=== PATIENT | female | born 1985 | race Caucasian/White ===

== ENCOUNTER → 2018-01-14 | Outpatient (CLI) | payer OTHER ==
[2018-01-14 17:11] LABS: ERYTHROCYTE SEDIMENTATION RATE 6 mm/hr (0-20)
[2018-01-14 17:21] LABS: C REACTIVE PROTEIN QUANTITATIV < 0.30 MG/DL (0.00-0.30)
[2018-01-14 17:45] LABS: CONTROL LINE MONO INT CTR LINE PRESENT; MONO SCRN NEGATIVE (NEGATIVE)
== END ==
LOC: M LAB 16:13
DX: R10.811 Right upper quadrant abdominal tenderness (principal)

== ENCOUNTER → 2018-01-20 | Outpatient (CLI) | payer OTHER ==
[~2018-01-20] MED LIST: GASTROGRAFIN SOLUTION 30ML (Q9963) As Ordered; ISOVUE-370 76% 100ML VIAL (Q9967) As Ordered
== END ==
LOC: M RAD 15:26
DX: R10.11 Right upper quadrant pain (principal)

== ENCOUNTER 2018-03-01 14:59 | Emergency (ER) | payer OTHER ==
[2018-03-01] MEDS: ONDANSETRON 4MG/2ML VIAL (J2405) IV (16:40)
[2018-03-01] MEDS: NS 1,000 ML IV (16:40)
[2018-03-01] MEDS: MORPHINE 4 MG/ML 1ML VIAL/SYRINGE (J2270) IV ×2 (16:41→17:57)
[2018-03-01 16:43] LABS: BASO # 0.1 10^3/uL (0.0-0.2); BASO % 0.5 % (0.0-1.0); EOS # 0.2 10^3/uL (0.0-0.50); EOS % 1.3 % (0.0-3.0); HEMATOCRIT 35.4 % (36.0-47.0); HEMOGLOBIN 11.8 g/dl (12.0-15.5); IMMATURE GRANULOCYTE % 0.4 % (0-3.0); LYMPH % 13.9 % (24.0-44.0); MEAN CORPUSCULAR HEMOGLOBIN 30.2 pg (27.0-33.0); MEAN CORPUSCULAR HGB CONC 33.3 g/dl (32.0-36.5); MEAN CORPUSCULAR VOLUME 90.5 fl (80.0-96.0); MONO # 0.9 10^3/uL (0.0-0.8); MONO % 6.6 % (0.0-5.0); NEUTROPHILS % 77.3 % (36.0-66.0); PLATELET COUNT, AUTOMATED 354 10^3/uL (150-450); RED BLOOD COUNT 3.91 10^6/uL (4.00-5.40); RED CELL DISTRIBUTION WIDTH 12.8 % (11.5-14.5); WHITE BLOOD COUNT 14.2 10^3/uL (4.0-10.0)
[2018-03-01 16:49] LABS: KETONE, URINE AUTO RFX NEGATIVE (NEGATIVE); LEUKOCYTE ESTERASE UR AUTO RFX NEGATIVE (NEGATIVE); MUCUS, URINE RFX SMALL (NEGATIVE); NITRITE, URINE AUTO RFX NEGATIVE (NEGATIVE); RBC, URINE AUTO RFX 0 /HPF (0-3); SPECIFIC GRAVITY UR AUTO RFX 1.009 (1.002-1.035); SQUAM EPITHELIAL CELL UR AURFX 0 /HPF (0-6); WBC, URINE AUTO RFX 2 /HPF (0-3)
[2018-03-01 16:54] LABS: INR 1.04; PROTHROMBIN TIME 13.7 SECONDS (12.4-14.5)
[2018-03-01 16:55] LABS: PARTIAL THROMBOPLASTIN TIME 29.8 SECONDS (26.8-37.9)
[2018-03-01 17:18] LABS: LACTIC ACID SEPSIS PROTOCOL 0.7 MMOL/L (0.4-2.0)
[2018-03-01 17:23] LABS: ALBUMIN 4.1 GM/DL (3.2-5.2); ALBUMIN/GLOBULIN RATIO 1.37 (1.00-1.93); ALKALINE PHOSPHATASE 62 U/L (45-117); ALT/SGPT 17 U/L (12-78); ANION GAP 7 MEQ/L (8-16); AST/SGOT 16 U/L (7-37); BILIRUBIN,DIRECT 0.1 MG/DL (0.0-0.2); BILIRUBIN,TOTAL 0.6 MG/DL (0.2-1.0); BLOOD UREA NITROGEN 11 MG/DL (7-18); CALCIUM LEVEL 8.8 MG/DL (8.5-10.1); CARBON DIOXIDE LEVEL 28 MEQ/L (21-32); CHLORIDE LEVEL 105 MEQ/L (98-107); CREATININE FOR GFR 0.66 MG/DL (0.55-1.30); GLOMERULAR FILTRATION RATE > 60.0 (>60); GLUCOSE, FASTING 84 MG/DL (70-100); LIPASE 99 U/L (73-393); POTASSIUM SERUM 4.5 MEQ/L (3.5-5.1); SODIUM LEVEL 140 MEQ/L (136-145); TOTAL PROTEIN 7.1 GM/DL (6.4-8.2)
[2018-03-01] MEDS ORDERED: ISOVUE-370 76% 100ML VIAL (Q9967) As Ordered (18:00)
== END 2018-03-01 19:52 | disposition home or self-care (01) ==
LOC: M ED 14:59
DX: R10.11 Right upper quadrant pain (principal); F41.9 Anxiety disorder, unspecified; Z72.0 Tobacco use
CPT/HCPCS: J2270

== ENCOUNTER → 2018-08-30 | Outpatient (REF) | payer OTHER ==
[~2018-08-30] MED LIST changes: +ALPR1TAB3 PO; +DICY20TA11 PO; -GASTROGRAFIN SOLUTION 30ML (Q9963) As Ordered; -ISOVUE-370 76% 100ML VIAL (Q9967) As Ordered
[2018-08-30 15:01] LABS: ALBUMIN 3.9 GM/DL (3.2-5.2); ALT/SGPT 36 U/L (12-78); BILIRUBIN,TOTAL 0.4 MG/DL (0.2-1.0); BLOOD UREA NITROGEN 15 MG/DL (7-18); CALCIUM LEVEL 8.4 MG/DL (8.5-10.1); CARBON DIOXIDE LEVEL 28 MEQ/L (21-32); CHLORIDE LEVEL 107 MEQ/L (98-107); GAMMA GLUTAMYLTRANSPEPTIDASE 47 U/L (5-55); GLOMERULAR FILTRATION RATE > 60.0 (>60); GLUCOSE, FASTING 71 MG/DL (70-100); POTASSIUM SERUM 4.1 MEQ/L (3.5-5.1); SODIUM LEVEL 142 MEQ/L (136-145); TOTAL PROTEIN 6.8 GM/DL (6.4-8.2)
[2018-08-30 15:19] LABS: HEPATITIS B SURFACE ANTIGEN NEGATIVE (NEGATIVE)
[2018-09-01 14:16] LABS: ANA (HEP2) Negative (.); ANTI-MITOCHONDRIAL ANTIBODY 2.2 Units (0.0-20.0); ANTI-SMOOTH MUSCLE ANTIBODY 6 Units (0-19); HBV HBV DNA not detected IU/mL (.); HEPATITIS A IgG TOTAL Positive (Negative); HEPATITIS B CORE ANTIBODY IGG Negative (Negative); HEPATITIS BE ANTIBODY Negative (Negative); HEPATITIS BE ANTIGEN Negative (Negative); HEPATITIS C QUANTITATION HCV Not Detected IU/mL (.); LIVER-KIDNEY MICROSOMAL ABY 0.9 Units (0.0-20.0)
== END ==
LOC: M SFHCPLAZ 10:44
PROVIDERS: ATTEND Internal Medicine Infectious Disease
DX: R94.5 Abnormal results of liver function studies (principal)
CPT/HCPCS: 36415; 80053; 82977; 86038; 86255; 86376; 86704; 86707; 86708; 87340; 87350; 87517; 87522; G0463

== ENCOUNTER → 2018-09-15 | Outpatient (CLI) | payer OTHER ==
[~2018-09-15] MED LIST changes: +PROHANCE 279.3MG/ML 15ML VIAL (A9576) As Ordered ONE
--- NOTE | 2018-09-15 16:20 | REP ---
MRCP exam without contrast: History: Abnormal LFTs. Comparison CT study March 01, 2018. Findings: There is a focal T2 hyperintense liver lesion 1.4 cm in diameter in the posterior segment of the right lobe of the liver. A small cortical cyst is seen in the right kidney. The gallbladder is surgically absent. The common bile duct has a normal appearance and a 7 mm caliber which is normal post cholecystectomy. The pancreatic duct is unremarkable as well. Augmentation implants are visible bilaterally in the breasts. Impression: Normal MRCP exam post cholecystectomy. There is a 1.4 cm right lobe liver lesion which corresponds to the CT findings. Electronically Signed by Erick Conway MD 09/15/2018 08:43 P
--- NOTE | 2018-09-15 17:15 | REP ---
MRI abdomen without and with IV gadolinium: History: Abnormal liver function studies. Hypervascular right lobe liver lesion. Comparison CT study January 20 and March 01, 2018. Technique: Axial and coronal T1 and T2-weighted scans were obtained. Sequences include spin-echo, fast spin echo, diffusion, in and out of phase, and dynamically acquired sequential post contrast enhanced images. Gadolinium enhancement dose is 12 mL of intravenous ProHance. MRI findings: There is a 9 mm cortical cyst in the left kidney. There is a similar sized cyst in the lower pole of the right kidney. No pancreatic abnormalities observed. The gallbladder is surgically absent. No splenic lesion is seen. No adrenal abnormalities observed. There is no evidence of ascites. There is a solitary liver lesion in the right lobe corresponding to the hypervascular lesion seen on CT. This is unchanged in size. It measures 14 mm in greatest diameter. It is characterized by T2 hyperintensity, T1 hypointensity and hypervascular enhancement with some washout on subsequent images. There is no evidence to suggest intralesional fat on in and out of phase images. The lesion does not demonstrate the typical pattern of contrast enhancement for hemangioma and is felt to be more compatible with hepatic adenoma or perhaps focal nodular hyperplasia. It is stable in size over an 8-month interval. No other focal liver lesion is seen. Impression: 14 mm hypervascular right hepatic lobe liver lesion most compatible with adenoma versus focal nodular hyperplasia. This corresponds to the liver lesion seen on CT from December and February 2018. It has demonstrated 8 months of stability in size. Followup scan suggested in one year. Electronically Signed by Erick Conway MD 09/15/2018 08:44 P
== END ==
LOC: M RAD 12:48
PROVIDERS: ATTEND Internal Medicine Infectious Disease
DX: K76.89 Other specified diseases of liver (principal)
CPT/HCPCS: 74181; 74183; A9576

== ENCOUNTER → 2018-09-16 | Outpatient (REF) | payer OTHER ==
[~2018-09-16] MED LIST changes: -PROHANCE 279.3MG/ML 15ML VIAL (A9576) As Ordered ONE
[2018-09-16 12:13] LABS: BASO # 0.1 10^3/uL (0.0-0.2); BASO % 1.1 % (0.0-1.0); EOS # 0.2 10^3/uL (0.0-0.50); EOS % 2.8 % (0.0-3.0); HEMATOCRIT 35.6 % (36.0-47.0); HEMOGLOBIN 11.6 g/dl (12.0-15.5); LYMPH % 25.9 % (24.0-44.0); MEAN CORPUSCULAR HEMOGLOBIN 29.5 pg (27.0-33.0); MEAN CORPUSCULAR HGB CONC 32.6 g/dl (32.0-36.5); MEAN CORPUSCULAR VOLUME 90.6 fl (80.0-96.0); MONO # 0.7 10^3/uL (0.0-0.8); MONO % 8.8 % (0.0-5.0); NEUTROPHILS # 4.8 10^3/uL (1.8-7.7); PLATELET COUNT, AUTOMATED 341 10^3/uL (150-450); RED BLOOD COUNT 3.93 10^6/uL (4.00-5.40); WHITE BLOOD COUNT 7.9 10^3/uL (4.0-10.0)
[2018-09-16 12:17] LABS: ALBUMIN 4.1 GM/DL (3.2-5.2); ALT/SGPT 22 U/L (12-78); BILIRUBIN,DIRECT 0.2 MG/DL (0.0-0.2); BILIRUBIN,TOTAL 0.7 MG/DL (0.2-1.0); TOTAL PROTEIN 7.2 GM/DL (6.4-8.2)
[2018-09-17 09:32] LABS: HEPATITIS B SURFACE ANTIBODY NEGATIVE (POSITIVE)
== END ==
LOC: M SFHCPLAZ 09:56
PROVIDERS: ATTEND Internal Medicine Infectious Disease
DX: R94.5 Abnormal results of liver function studies (principal)

== ENCOUNTER 2018-10-26 10:10 | Emergency (ER) | payer OTHER ==
[~2018-10-26] VITALS: Ht 167.6 cm; Wt 27.9 kg
[2018-10-26 10:41] LABS: BASO # 0.1 10^3/uL (0.0-0.2); BASO % 0.8 % (0.0-1.0); EOS # 0.2 10^3/uL (0.0-0.50); EOS % 2.1 % (0.0-3.0); HEMATOCRIT 42.7 % (36.0-47.0); HEMOGLOBIN 13.6 g/dl (12.0-15.5); LYMPH # 2.2 10^3/uL (1.5-4.5); LYMPH % 30.8 % (24.0-44.0); MEAN CORPUSCULAR HEMOGLOBIN 28.6 pg (27.0-33.0); MEAN CORPUSCULAR HGB CONC 31.9 g/dl (32.0-36.5); MEAN CORPUSCULAR VOLUME 89.9 fl (80.0-96.0); MONO # 0.6 10^3/uL (0.0-0.8); MONO % 8.9 % (0.0-5.0); NEUTROPHILS # 4.1 10^3/uL (1.8-7.7); NEUTROPHILS % 57.1 % (36.0-66.0); PLATELET COUNT, AUTOMATED 370 10^3/uL (150-450); RED BLOOD COUNT 4.75 10^6/uL (4.00-5.40); WHITE BLOOD COUNT 7.2 10^3/uL (4.0-10.0)
[2018-10-26 11:14] LABS: ALBUMIN 3.9 GM/DL (3.2-5.2); ALT/SGPT 19 U/L (12-78); AMYLASE 42 U/L (25-115); BILIRUBIN,DIRECT 0.2 MG/DL (0.0-0.2); BILIRUBIN,TOTAL 0.8 MG/DL (0.2-1.0); BLOOD UREA NITROGEN 14 MG/DL (7-18); CALCIUM LEVEL 7.9 MG/DL (8.5-10.1); CARBON DIOXIDE LEVEL 26 MEQ/L (21-32); CHLORIDE LEVEL 109 MEQ/L (98-107); CREATININE FOR GFR 0.72 MG/DL (0.55-1.30); GLOMERULAR FILTRATION RATE > 60.0 (>60); GLUCOSE, FASTING 88 MG/DL (70-100); LIPASE 114 U/L (73-393); POTASSIUM SERUM 3.8 MEQ/L (3.5-5.1); SODIUM LEVEL 141 MEQ/L (136-145); TOTAL PROTEIN 6.9 GM/DL (6.4-8.2)
[2018-10-26] MEDS ORDERED: KETOROLAC 30 MG/ML VIAL (J1885) IV ONE (11:15)
[2018-10-26] MEDS ORDERED: ONDANSETRON 4MG/2ML VIAL (J2405) IV ONE (11:15)
[2018-10-26 11:30] LABS: HCG, SERUM QUALITATIVE NEGATIVE (NEGATIVE)
--- NOTE | 2018-10-26 11:55 | REP ---
Clinical: Right upper quadrant abdominal pain. Technique: Upright view of the chest with supine and upright views of the abdomen and pelvis. Findings: Frontal upright view of the chest demonstrates no acute cardiopulmonary process or free air below the diaphragm to suspect pneumoperitoneum. Supine and upright views of the abdomen and pelvis demonstrate nonspecific bowel gas pattern without obstruction or perforation. Evidence of prior cholecystectomy noted. IUD identified in the pelvis. No organomegaly. No abnormal calcifications. Skeletal structures normal for age. Impression: Nonspecific bowel gas pattern. Electronically Signed by Gavino Aquino MD 10/26/2018 11:46 A
[2018-10-26] MEDS ORDERED: CARA1TAB6 PO (12:21)
[2018-10-26] MEDS ORDERED: PROT1TAB2 PO (12:21)
[2018-10-26 12:30] VITALS: BP 112/76
== END 2018-10-26 12:32 | disposition home or self-care (01) ==
LOC: M ED 10:10
DX: K29.00 Acute gastritis without bleeding (principal); R10.9 Unspecified abdominal pain
CPT/HCPCS: 74021; 80048; 80076; 82150; 83690; 84703; 85025; 96374; 96375; 99284; J1885; J2405

== ENCOUNTER → 2019-08-18 | Outpatient (CLI) | payer OTHER ==
[~2019-08-18] MED LIST changes: +CARA1TAB6 PO; +PROT1TAB2 PO
[2019-08-18 16:32] LABS: ALBUMIN 3.7 GM/DL (3.2-5.2); ALT/SGPT 130 U/L (12-78); BILIRUBIN,DIRECT 0.2 MG/DL (0.0-0.2); BILIRUBIN,TOTAL 0.9 MG/DL (0.2-1.0); FERRITIN 52 NG/ML (8-252); IRON (FE) 116 UG/DL (50-170); PERCENT SATURATION 35.8 % (13.2-45.0); TOTAL IRON BINDING CAPACITY 324 UG/DL (250-450); TOTAL PROTEIN 6.8 GM/DL (6.4-8.2)
[2019-08-18 16:44] LABS: INR 1.14; PROTHROMBIN TIME 14.3 SECONDS (11.8-14.0)
[2019-08-18 16:45] LABS: PARTIAL THROMBOPLASTIN TIME 31.3 SECONDS (25.0-38.4)
[2019-08-19 11:08] LABS: HEPATITIS B SURFACE ANTIGEN NEGATIVE (NEGATIVE)
[2019-08-19 11:35] LABS: HEPATITIS C VIRUS ABY INDEX 0.1 INDEX (<0.8)
[2019-08-19 11:37] LABS: HEPATITIS A ANTIBODY IGM NEGATIVE (NEGATIVE)
[2019-08-19 12:14] LABS: HEPATITIS B SURFACE ANTIBODY POSITIVE (POSITIVE)
[2019-08-21 00:06] LABS: ALPHA 1 ANTITRYPSIN 142 mg/dL (100-188); ANTI-MITOCHONDRIAL ANTIBODY <20.0 Units (0.0-20.0); ANTI-SMOOTH MUSCLE ANTIBODY 7 Units (0-19); ANTINUCLEAR ANTIBODIES DIRECT Negative (Negative); CERULOPLASMIN 25.5 mg/dL (19.0-39.0); HEPATITIS A IgG TOTAL Positive (Negative); LIVER-KIDNEY MICROSOMAL ABY <20.1 Units (0.0-20.0); TISSUE TRANSGLUTAMINASE IgG <2 U/mL (0-5)
== END ==
LOC: M LAB 15:09
PROVIDERS: ATTEND Specialist
DX: R94.5 Abnormal results of liver function studies (principal); K31.89 Other diseases of stomach and duodenum; R10.11 Right upper quadrant pain

== ENCOUNTER 2019-08-27 17:17 | Emergency (ER) | payer OTHER ==
[~2019-08-27] VITALS: Ht 167.6 cm; Wt 61.4 kg
[2019-08-27] MEDS ORDERED: AJOV225I (17:29)
[2019-08-27 17:54] LABS: BASO # 0.1 10^3/uL (0.0-0.2); BASO % 0.8 % (0.0-1.0); EOS # 0.4 10^3/uL (0.0-0.5); EOS % 4.7 % (0.0-3.0); HEMATOCRIT 43.2 % (36.0-47.0); HEMOGLOBIN 14.3 g/dl (12.0-15.5); LYMPH # 1.8 10^3/uL (1.5-5.0); MEAN CORPUSCULAR HGB CONC 33.1 g/dl (32.0-36.5); MEAN CORPUSCULAR VOLUME 93.5 fl (80.0-96.0); MONO # 0.7 10^3/uL (0.0-0.8); MONO % 7.7 % (0.0-5.0); NEUTROPHILS % 66.2 % (36.0-66.0); PLATELET COUNT, AUTOMATED 370 10^3/uL (150-450); RED BLOOD COUNT 4.62 10^6/uL (4.00-5.40); WHITE BLOOD COUNT 9.1 10^3/uL (4.0-10.0)
[2019-08-27] MEDS ORDERED: KETOROLAC 30 MG/ML VIAL (J1885) IV ONE (18:00)
[2019-08-27] MEDS ORDERED: METOCLOPRAMIDE INJ 10MG/2ML VIAL (J2765) IV ONE (18:00)
[2019-08-27] MEDS ORDERED: NS 1,000 ML IV ONE (18:00)
[2019-08-27 18:18] LABS: ALBUMIN 3.9 GM/DL (3.2-5.2); ALT/SGPT 79 U/L (12-78); BILIRUBIN,DIRECT 0.2 MG/DL (0.0-0.2); BILIRUBIN,TOTAL 0.6 MG/DL (0.2-1.0); BLOOD UREA NITROGEN 11 MG/DL (7-18); CALCIUM LEVEL 8.7 MG/DL (8.5-10.1); CARBON DIOXIDE LEVEL 26 MEQ/L (21-32); CHLORIDE LEVEL 106 MEQ/L (98-107); CREATININE FOR GFR 0.72 MG/DL (0.55-1.30); GLOMERULAR FILTRATION RATE > 60.0 (>60); GLUCOSE, FASTING 81 MG/DL (70-100); LIPASE 75 U/L (73-393); POTASSIUM SERUM 4.2 MEQ/L (3.5-5.1); SODIUM LEVEL 140 MEQ/L (136-145); TOTAL PROTEIN 6.9 GM/DL (6.4-8.2)
[2019-08-27] MEDS ORDERED: ISOVUE-370 76% 100ML VIAL (Q9967) As Ordered ONE (18:36)
[2019-08-27] MEDS ORDERED: MORPHINE 4 MG/ML 1ML VIAL/SYRINGE (J2270) IV ONE (18:45)
[2019-08-27] MEDS ORDERED: DICYCLOMINE 10 MG CAP PO ONE (18:45)
--- NOTE | 2019-08-27 19:40 | REPVR ---
PROCEDURE INFORMATION: Exam: CT Abdomen And Pelvis With Contrast Exam date and time: 08/27/2019 6:39 PM Age: 34 years old Clinical history: Abdominal pain; Prior surgery; Surgery date: 3-7 days post-operative; Surgery type: Ercp; Additional info: Ruq pain, ercp 4 days ago, n/v TECHNIQUE: Imaging protocol: Computed tomography of the abdomen and pelvis with intravenous contrast. Radiation optimization: All CT scans at this facility use at least one of these dose optimization techniques: automated exposure control; mA and/or kV adjustment per patient size (includes targeted exams where dose is matched to clinical indication); or iterative reconstruction. Contrast material: ISOVUE 370; Contrast volume: 100 ml; Contrast route: IV; COMPARISON: CT ABD/PEL W/IV CONTRAST ONLY 03/01/2018 6:06 PM FINDINGS: Lungs: Clear appearing lung bases. Heart: The heart is normal in size. There is no pericardial effusion. Liver: Normal appearing liver. Gallbladder and bile ducts: There are surgical clips at the gallbladder fossa and the patient is status post cholecystectomy. There is some narrowing of the 1st portion of the common bile duct which may be secondary to edematous changes from recent intervention. Pancreas: Mild prominence of the head of the pancreas. Spleen: Normal spleen. Adrenals: Normal adrenal glands. Kidneys and ureters: There is opacification of the kidneys. There is no evidence of hydronephrosis. There is no evidence of obstruction of the right or left ureter. Stomach and bowel: There is mucosal thickening of the gastric antrum. There is a 2 cm x 3 mm linear area of air in the wall of the pylorus possibly a small injury to the bowel wall. There is a small amount of free fluid in the pelvis. Appendix: The appendix appears within the range of normal. Intraperitoneal space: There is no evidence of pneumoperitoneum. Vasculature: There is opacification of the aorta which appears normal in size. There is opacification of the SMV and the SMA. There is opacification of the renal arteries. Lymph nodes: Unremarkable. No enlarged lymph nodes. Bladder: The urinary bladder is empty and cannot be evaluated. Reproductive: 4.3 cm cyst of the right kidney and an IUD is noted within the uterus. Bones/joints: Unremarkable. No acute fracture. Soft tissues: Unremarkable. IMPRESSION: 1. 4.3 cm cyst right ovary which may be a functional cyst. To exclude cystic pathology recommend follow-up ultrasound after 2-3 months to ensure that this cystic structure resolves. There is a small amount of free fluid in the pelvis possibly from leaking of the cyst. 2. There is swelling of the wall of the gastric antrum. 3. There is a curvilinear collection of air within the gastric wall at the pylorus which may be from recent intervention. Electronically signed by: Sedrick Castro On 08/27/2019 19:39:32 PM
[2019-08-27] MEDS ORDERED: REGL10TA6 PO ×2 (20:43→21:28)
[2019-08-27] MEDS ORDERED: DICY1CAP8 PO (20:43)
[2019-08-27] MEDS ORDERED: NORCO 5/325MG TABLET (BULK FOR ED) PO ONE (20:45)
[2019-08-27 20:55] VITALS: BP 124/82
[2019-08-27] MEDS ORDERED: DICY10CA13 PO (21:28)
--- NOTE | 2019-08-29 13:47 | ED PDOC ---
Post-Departure Follow-Up linda green faxed formal report of ct abd/p for fu Leeann Rodney MD Aug 29, 2019 13:47
== END 2019-08-27 21:49 | disposition home or self-care (01) ==
LOC: M ED 17:17
DX: E86.0 Dehydration (principal); N83.201 Unspecified ovarian cyst, right side
CPT/HCPCS: 36415; 74177; 80048; 80076; 81001; 83690; 84702; 85025; 96361; 96374; 96375; 99284; J1885; J2270; J2765; Q9967

== ENCOUNTER → 2019-11-16 | Outpatient (CLI) | payer OTHER ==
[~2019-11-16] MED LIST changes: +AJOV225I; +DICY10CA13 PO; +DICY1CAP8 PO; +REGL10TA6 PO
--- NOTE | 2019-11-16 09:44 | REPVR ---
PROCEDURE INFORMATION: Exam: CT Maxillofacial Without Contrast Exam date and time: 11/16/2019 9:08 AM Age: 34 years old Clinical indication: Other: Difficulty breathing; Additional info: FX of skull and facial bones TECHNIQUE: Imaging protocol: Computed tomography images of the face without contrast. Radiation optimization: All CT scans at this facility use at least one of these dose optimization techniques: automated exposure control; mA and/or kV adjustment per patient size (includes targeted exams where dose is matched to clinical indication); or iterative reconstruction. COMPARISON: No relevant prior studies available. FINDINGS: Orbits: Examination reveals bilateral globes to be normal in size and morphology. The optic nerves are normal in thickness and symmetric bilaterally. The extraocular muscles are normal in thickness and signal intensity. The retroconal fat has a normal appearance. The lacrimal glands appear normal bilaterally. Mastoid air cells: The visualized mastoid air cells are clear. Sinuses: The visualized paranasal sinuses are clear. There are no air fluid levels to suggest acute sinusitis. Bones/joints: The bony orbital hubbard are intact. No fractures are identified. The visualized osseous structures are unremarkable. No acute fracture or dislocation is seen. Soft tissues: Unremarkable. IMPRESSION: No acute fracture or dislocation is seen. Electronically signed by: Noah Avendaño On 11/16/2019 09:44:02 AM
== END ==
LOC: M RAD 08:43
PROVIDERS: ATTEND Psychiatry & Neurology Neurology
DX: S02.80XA Fracture of other specified skull and facial bones, unspecified side, initial encounter for closed fracture (principal); X58.XXXA Exposure to other specified factors, initial encounter; Y92.9 Unspecified place or not applicable; R51 Headache

== ENCOUNTER 2019-11-21 16:53 | Emergency (ER) | payer OTHER ==
[~2019-11-21] VITALS: Ht 167.6 cm; Wt 66.3 kg
[2019-11-21 16:54] VITALS: BP 142/85
--- NOTE | 2019-11-21 17:36 | REP ---
Left ankle series: Four views. History: Pain and swelling. Findings: Four views of the left ankle demonstrate an intact ankle mortise. There is mild soft tissue swelling anteriorly. No fracture is seen. Impression: No fracture or other acute bony abnormality. Electronically Signed by Erick Conway MD 11/21/2019 05:27 P
[2019-11-21] MEDS ORDERED: KETOROLAC 30 MG/ML VIAL (J1885) IM ONE (18:15)
[2019-11-21] MEDS ORDERED: IBUP80TA PO (18:40)
== END 2019-11-21 18:50 | disposition home or self-care (01) ==
LOC: M ED 16:53
DX: S93.402A Sprain of unspecified ligament of left ankle, initial encounter (principal); X50.9XXA Other and unspecified overexertion or strenuous movements or postures, initial encounter; Y92.410 Unspecified street and highway as the place of occurrence of the external cause; Y93.89 Activity, other specified; Y99.8 Other external cause status; F41.9 Anxiety disorder, unspecified; Z79.899 Other long term (current) drug therapy
CPT/HCPCS: 73610; 96372; 99284; J1885

== ENCOUNTER 2020-03-15 11:12 | Day surgery (SDC) | payer OTHER ==
[~2020-03-15] VITALS: Ht 167.6 cm; Wt 63.0 kg
[~2020-03-15 11:12] MED LIST changes: +CBD OIL PO; +IBUP80TA PO; +LIDOCAINE 1% MDV 20ML VIAL SQ PRN; +LIDOCAINE 2% 100MG/5ML SDV (FOR ANES.) As Ordered ONE; +LR 1,000 ML IV ONE; +MIDAZOLAM INJ 2MG/2ML VIAL (J2250 PER 1MG) As Ordered ONE; +MIRE1IUD IU; +ONDANSETRON 4MG/2ML VIAL As Ordered ONE; +ROCURONIUM BROMIDE 50 MG/5 ML VIAL As Ordered ONE; +dexameTHASONE 4 MG/ML 1ML VIAL (J1100 PER 1MG) As Ordered ONE; +fentaNYL 100 MCG/2 ML INJECTION (J3010) As Ordered ONE; +propofoL 200 MG/20 ML VIAL As Ordered ONE
[2020-03-15] MEDS ORDERED: EPINEPHrine 1MG/ML INJ 30ML MD-VIAL As Ordered ONE (11:53)
[2020-03-15] MEDS ORDERED: METHYLENE BLUE 0.5% (5MG/ML) 10 ML AMP (PROVAYBLUE) As Ordered ONE (11:53)
[2020-03-15] MEDS ORDERED: LIDOCAINE W/EPINEPHRINE 1% 20ML VIAL As Ordered ONE (11:53)
[2020-03-15] MEDS ORDERED: SCOPOLAMINE 1MG TRANSDERMAL PATCH As Ordered ONE (13:58)
[2020-03-15] MEDS ORDERED: SCOPOLAMINE 1MG TRANSDERMAL PATCH TOP ONE (14:15)
[2020-03-15] MEDS ORDERED: SUGAMMADEX SODIUM 500 MG/5 ML VIAL (BRIDION) As Ordered ONE (14:22)
[2020-03-15] MEDS ORDERED: ACETAMINOPHEN 1000MG 100ML IV BTL (OFIRMEV) (J0131 PER 10MG) As Ordered ONE (14:22)
[2020-03-15] MEDS ORDERED: METOCLOPRAMIDE INJ 10MG/2ML VIAL (J2765 PER 1) As Ordered ONE (14:24)
[2020-03-15] MEDS ORDERED: PHENYLephrine HCL 500 MCG/5 ML (100MCG/ML) SYRINGE (J2370) As Ordered ONE (14:36)
[2020-03-15] MEDS ORDERED: LR 1,000 ML IV SCH ×2 (15:30→15:45)
[2020-03-15] MEDS ORDERED: ACETAMINOPH W/CODEINE #3 TAB UD PO PRN (15:30)
[2020-03-15] MEDS ORDERED: oxyCODONE 5MG TAB As Ordered ONE (15:41)
[2020-03-15] MEDS ORDERED: fentaNYL 100 MCG/2 ML INJECTION (J3010) IV PRN (15:45)
[2020-03-15] MEDS ORDERED: ONDANSETRON 4MG/2ML VIAL IV PRN (15:45)
[2020-03-15] MEDS: oxyCODONE 5MG TAB PO PRN ×2 (15:47→16:39)
[2020-03-15 16:50] VITALS: BP 121/77
--- NOTE | 2020-03-18 14:37 | RO ---
DATE OF PROCEDURE: 03/15/2020 PREOPERATIVE DIAGNOSIS: Nasal septal deformity. POSTOPERATIVE DIAGNOSIS: Nasal septal deformity. OPERATIVE PROCEDURE: Septoplasty. Rhinoplasty. SURGEON: Dr. Zen Candelario DISTRIBUTION OPERATIONS SUPERVISOR: ANESTHESIA: FINDINGS: The nasal septum was deviated towards the right side in the mid portion, but anteriorly is deviated towards the left side along the columella. The anterior nasal spine was deviated towards the left side. DESCRIPTION OF PROCEDURE: Under general anesthesia with the patient intubated, the patient was prepped and draped in the usual manner. I used pledgets of adrenaline 1:1000 and infiltrated with lidocaine and epinephrine. I made an incision anteriorly on the septum on the left side and elevated the septum on both sides. The septum was splayed towards the left side on the maxillary crest so I sectioned to cauterize there and then removed the inferior portion of quadrangular cartilage and then a portion of the ethmoid plate. Once this was done, the septum was straight. There was an anterior bend towards the left side along the columella so I made a relaxing incision in the cartilage. I removed portions of the maxillary crest, but the anterior nasal spine I fractured and moved it medial. Next, what I did was I took and I put a suture from the base of the columella on the right side and then sutured that to the anterior nasal spine. I then sutured the mucosa back to the quadrangular cartilage. This was done with interrupted #4-0 chromic. I sutured the anterior part of the septum to the anterior nasal spine with #4-0 Vicryl. I used #4-0 Mersilene to suture the base of the columella on the right side to the anterior nasal spine. Once this was done, the septum was straight. There was no bleeding. I put some Gelfoam on both sides of the nose. The mucosa was reapproximated with #4-0 chromic. The patient was transferred to the recovery room in excellent condition.
== END 2020-03-15 17:00 | disposition home or self-care (01) ==
LOC: M SDC 11:12
PROVIDERS: ATTEND Otolaryngology
DX: J34.2 Deviated nasal septum (principal); G43.909 Migraine, unspecified, not intractable, without status migrainosus; F41.9 Anxiety disorder, unspecified; K21.9 Gastro-esophageal reflux disease without esophagitis; Z79.899 Other long term (current) drug therapy
CPT/HCPCS: 30400; 30520; 81025; 88300; J0131; J1100; J2250; J2370; J2405; J2765; J3010; Q9968

== ENCOUNTER → 2020-05-28 | Outpatient (CLI) | payer OTHER ==
[~2020-05-28] MED LIST changes: -LIDOCAINE 1% MDV 20ML VIAL SQ PRN; -LIDOCAINE 2% 100MG/5ML SDV (FOR ANES.) As Ordered ONE; -LR 1,000 ML IV ONE; -MIDAZOLAM INJ 2MG/2ML VIAL (J2250 PER 1MG) As Ordered ONE; -ONDANSETRON 4MG/2ML VIAL As Ordered ONE; -ROCURONIUM BROMIDE 50 MG/5 ML VIAL As Ordered ONE; -dexameTHASONE 4 MG/ML 1ML VIAL (J1100 PER 1MG) As Ordered ONE; -fentaNYL 100 MCG/2 ML INJECTION (J3010) As Ordered ONE; -propofoL 200 MG/20 ML VIAL As Ordered ONE
[2020-05-28 15:08] LABS: ALT/SGPT 18 U/L (12-78); BILIRUBIN,DIRECT 0.2 MG/DL (0.0-0.2); BILIRUBIN,TOTAL 0.4 MG/DL (0.2-1.0); FERRITIN 34 NG/ML (8-252); IRON (FE) 59 UG/DL (50-170); PERCENT SATURATION 17.5 % (13.2-45.0); TOTAL IRON BINDING CAPACITY 337 UG/DL (250-450); TOTAL PROTEIN 7.2 GM/DL (6.4-8.2)
[2020-05-28 15:14] LABS: HEPATITIS B SURFACE ANTIBODY POSITIVE (POSITIVE)
[2020-05-28 15:53] LABS: HEPATITIS C VIRUS ABY INDEX 0.2 INDEX (<0.8)
[2020-05-29 14:09] LABS: CERULOPLASMIN 24.2 mg/dL (19.0-39.0)
[2020-05-29 16:08] LABS: ANTI-MITOCHONDRIAL ANTIBODY <20.0 Units (0.0-20.0); ANTINUCLEAR ANTIBODIES DIRECT Negative (Negative)
== END ==
LOC: M LAB 14:03
PROVIDERS: ATTEND Specialist
DX: R94.5 Abnormal results of liver function studies (principal); R10.11 Right upper quadrant pain; K31.89 Other diseases of stomach and duodenum; K30 Functional dyspepsia

== ENCOUNTER 2020-06-11 10:12 | Emergency (ER) | payer OTHER ==
[~2020-06-11] VITALS: Ht 167.6 cm; Wt 66.8 kg
--- NOTE | 2020-06-11 11:10 | REPVR ---
PROCEDURE INFORMATION: Exam: XR Right Wrist Exam date and time: 06/11/2020 10:53 AM Age: 35 years old Clinical indication: Injury or trauma; Injury history: Hit wrist; Initial encounter; Swelling (edema); Right; Additional info: Pain TECHNIQUE: Imaging protocol: XR Right wrist. Views: 3 or more views. COMPARISON: No relevant prior studies available. FINDINGS: Bones/joints: No acute fracture. No dislocation. Soft tissues: Unremarkable as visualized. IMPRESSION: No acute findings. Electronically signed by: Scott Lopez On 06/11/2020 11:10:25 AM
[2020-06-11] MEDS ORDERED: IBUPROFEN 600MG TAB PO ONE (11:15)
[2020-06-11 11:29] VITALS: BP 119/79
== END 2020-06-11 11:33 | disposition home or self-care (01) ==
LOC: M ED 10:12
DX: S63.501A Unspecified sprain of right wrist, initial encounter (principal); X58.XXXA Exposure to other specified factors, initial encounter; Y92.89 Other specified places as the place of occurrence of the external cause; Z97.5 Presence of (intrauterine) contraceptive device

== ENCOUNTER 2020-08-03 14:05 | Day surgery (SDC) | payer OTHER ==
[~2020-08-03] VITALS: Ht 167.6 cm; Wt 65.8 kg
[~2020-08-03 14:05] MED LIST changes: +LIDOCAINE 1% MDV 20ML VIAL SQ PRN; +LR 1,000 ML IV ONE
[2020-08-03] MEDS ORDERED: ROPIvacaine 0.5% 30ML INJECTION (J2795 PER 1MG) ONE (14:06)
[2020-08-03] MEDS ORDERED: dexameTHASONE 10MG/1ML VIAL PRES.FREE (J1100 PER 1MG) ONE (14:06)
[2020-08-03] MEDS ORDERED: EPINEPHrine INJ 1 MG/ML 1ML AMP ONE (14:06)
[2020-08-03] MEDS ORDERED: ceFAZolin 2 GM/D5W 50 ML IV BAG (J0690 PER 500MG) As Ordered ONE (15:29)
[2020-08-03] MEDS ORDERED: fentaNYL 100 MCG/2 ML INJECTION (J3010) As Ordered ONE ×3 (15:33→18:00)
[2020-08-03] MEDS ORDERED: MIDAZOLAM INJ 2MG/2ML VIAL (J2250 PER 1MG) As Ordered ONE ×2 (15:33→15:56)
[2020-08-03] MEDS ORDERED: KETOROLAC 60MG 2ML VIAL As Ordered ONE (15:55)
[2020-08-03] MEDS ORDERED: dexameTHASONE 4 MG/ML 1ML VIAL (J1100 PER 1MG) As Ordered ONE (15:55)
[2020-08-03] MEDS ORDERED: LIDOCAINE 2% 100MG/5ML SDV (FOR ANES.) As Ordered ONE (15:55)
[2020-08-03] MEDS ORDERED: ONDANSETRON 4MG/2ML VIAL As Ordered ONE ×2 (15:55→18:09)
[2020-08-03] MEDS ORDERED: propofoL 200 MG/20 ML VIAL As Ordered ONE (15:55)
[2020-08-03] MEDS ORDERED: ceFAZolin SOD 2 GM in IV 1 EA IV ONE (16:00)
[2020-08-03] MEDS ORDERED: MIDAZOLAM INJ 2MG/2ML VIAL (J2250 PER 1MG) IV PRN (16:30)
[2020-08-03] MEDS ORDERED: fentaNYL 100 MCG/2 ML INJECTION (J3010) IV PRN (16:30)
[2020-08-03] MEDS: fentaNYL 100 MCG/2 ML INJECTION (J3010) IV PRN ×4 (18:00→18:19)
[2020-08-03] MEDS ORDERED: PERCOCET 5MG/325MG TAB As Ordered ONE (18:00)
[2020-08-03] MEDS: PERCOCET 5MG/325MG TAB PO PRN ×2 (18:00→18:36)
[2020-08-03] MEDS ORDERED: LR 1,000 ML IV SCH ×2 (18:15)
[2020-08-03] MEDS ORDERED: MEPERIDINE INJ 25 MG/ML VIAL (J2175) IV PRN (18:15)
[2020-08-03] MEDS ORDERED: ONDANSETRON 4MG/2ML VIAL IV PRN (18:15)
[2020-08-03] MEDS: HYDROMORPHONE HCL 0.5 MG/ 0.5 ML SYRINGE (J1170 PER 1) IV PRN ×4 (18:23→18:45)
--- NOTE | 2020-08-03 18:32 | REP ---
INDICATION: C-ARM. COMPARISON: None. TECHNIQUE: Four images from C-arm fluoroscopy provided to Dr. Winston of the orthopedic division are reviewed. FINDINGS: Four view show 4th toe ORIF of the proximal phalanx with an orthopedic screw in the shaft of that bone and a K-wire across the phalanges. Alignment appears essentially anatomic. IMPRESSION: Status post ORIF fracture proximal phalanx 4th toe with hardware as described. Fluoroscopy time 39.1 seconds. <Electronically signed by Chepe Hua > 08/03/20 0193
[2020-08-03 20:05] VITALS: BP 137/76
--- NOTE | 2020-08-06 08:07 | RO ---
DATE OF OPERATION: 08/03/2020 PREOPERATIVE DIAGNOSIS: Left 4th toe proximal phalanx fracture with rotation of the toe. POSTOPERATIVE DIAGNOSIS: Left 4th toe proximal phalanx fracture with rotation of the toe. PROCEDURE: Left 4th toe open reduction/internal fixation and pinning. SURGEON: Mindi Winston M.D. HOSPICE DIRECTOR: Serenity Funes ANESTHESIA: Laryngeal mask airway (LMA) with popliteal nerve block. ESTIMATED BLOOD LOSS: 10 mL. COMPLICATIONS: None. CONDITION: Stable to recovery. INDICATIONS: Sara Moody is a 35-year-old female who fractured her 4th toe. She has had increased deformity over the past few weeks. She was offered continued conservative or surgical care, and she has elected to proceed with surgery. Risks and benefits of surgery were discussed with her in detail and include, but are not limited to, infection, damage to nerves and blood vessels, continued pain and stiffness, need for additional procedure. Informed consent was obtained. PROCEDURE DESCRIPTION: Patient was met in the preoperative holding area, where her left lower extremity was marked as the correct operative side. She underwent a popliteal nerve block. She was taken to the operating room and placed in the supine position on the operating room table. A well-padded tourniquet was placed on the left upper thigh. Antibiotics were given within 60 minutes prior to incision. The left lower extremity was prepped and draped in the normal sterile fashion. An official time-out was held, where the correct patient, operative side, and operative procedure were verified. An incision was made over the proximal phalanx. The extensor tendon was retracted medially. There was an oblique fracture without any significant healing. Fracture was debrided of hematoma and debris. It was then reduced with small point of reduction forceps. There was comminution at the fracture site and very minimal bone to work with. I was eventually able to get a 1.5 mm screw. I placed a 2-0 Vicryl suture around the fracture site as well, which was directly around the bone, also to aid in holding the fracture site. To help further maintain rotation and alignment I placed a 0.045 K wire through the toe down to the level of the screw past the proximal interphalangeal (PIP) joint. At this point, x-rays were performed and found to be satisfactory. AP, oblique, and lateral were all again satisfactory. The pin was bent and cut. The toe was Steri-Stripped to the 5th toe for further support. The wound was copiously irrigated and closed with 3-0 Vicryl and 4-0 Monocryl. Again, the toe was splinted to the 5th toe for further support. Sterile dressing was applied and the patient was placed into a short walking boot. She was extubated and transferred to the recovery room in stable condition. PLAN: She will be nonweightbearing for 2 weeks. AT that point we will advance her to heel weightbearing. She will be ob aspirin for deep venous thrombosis (DVT) prophylaxis. I will see her back in a week for clinical check. SHAI
== END 2020-08-03 20:05 | disposition home or self-care (01) ==
LOC: M SDC 14:05
PROVIDERS: ATTEND Orthopaedic Surgery
DX: S92.512A Displaced fracture of proximal phalanx of left lesser toe(s), initial encounter for closed fracture (principal); X58.XXXA Exposure to other specified factors, initial encounter; Y92.89 Other specified places as the place of occurrence of the external cause; Y93.9 Activity, unspecified; Y99.9 Unspecified external cause status; F41.9 Anxiety disorder, unspecified; G43.909 Migraine, unspecified, not intractable, without status migrainosus; Z87.891 Personal history of nicotine dependence; Z79.899 Other long term (current) drug therapy
CPT/HCPCS: 28525; 64445; 76000; 81025; C1713; J0171; J0690; J1100; J1170; J1885; J2250; J2405; J2795; J3010

== ENCOUNTER 2020-09-28 05:44 | Inpatient (IN) | payer OTHER ==
[2020-09-27 15:40] VITALS: BP 125/66
[~2020-09-28] VITALS: Ht 167.6 cm; Wt 70.3 kg
[~2020-09-28 05:44] MED LIST changes: -LIDOCAINE 1% MDV 20ML VIAL SQ PRN; -LR 1,000 ML IV ONE
[2020-09-28] MEDS ORDERED: NS 1,000 ML IV ONE (06:00)
[2020-09-28 06:01] LABS: BASO # 0.1 10^3/uL (0.0-0.2); BASO % 0.7 % (0.0-1.0); EOS % 0.5 % (0.0-3.0); HEMOGLOBIN 12.2 g/dl (12.0-15.5); LYMPH # 2.4 10^3/uL (1.5-5.0); LYMPH % 27.7 % (24.0-44.0); MEAN CORPUSCULAR HEMOGLOBIN 29.2 pg (27.0-33.0); MEAN CORPUSCULAR HGB CONC 32.1 g/dl (32.0-36.5); MEAN CORPUSCULAR VOLUME 90.9 fl (80.0-96.0); MONO # 0.5 10^3/uL (0.0-0.8); MONO % 6.1 % (0.0-5.0); NEUTROPHILS # 5.5 10^3/uL (1.5-8.5); NEUTROPHILS % 64.5 % (36.0-66.0); PLATELET COUNT, AUTOMATED 302 10^3/uL (150-450); RED BLOOD COUNT 4.18 10^6/uL (4.00-5.40); WHITE BLOOD COUNT 8.5 10^3/uL (4.0-10.0)
[2020-09-28] MEDS ORDERED: HYDR-3713 (06:27)
[2020-09-28] MEDS ORDERED: TRAM50TA2 (06:27)
[2020-09-28 06:53] LABS: HCG, SERUM QUALITATIVE NEGATIVE (NEGATIVE)
[2020-09-28 07:05] LABS: ACETAMINOPHEN LEVEL < 2.0 UG/ML (10.0-30.0); ALBUMIN 4.3 GM/DL (3.2-5.2); ALT/SGPT 14 U/L (12-78); BILIRUBIN,DIRECT 0.1 MG/DL (0.0-0.2); BILIRUBIN,TOTAL 0.3 MG/DL (0.2-1.0); BLOOD UREA NITROGEN 8 MG/DL (7-18); CALCIUM LEVEL 8.8 MG/DL (8.5-10.1); CARBON DIOXIDE LEVEL 26 MEQ/L (21-32); CHLORIDE LEVEL 111 MEQ/L (98-107); CPK CREATINE PHOSPHOKINASE 74 U/L (26-192); ETHYL ALCOHOL (ETHANOL) 0.245 % (0.000-0.010); GLOMERULAR FILTRATION RATE > 60.0 (>60); GLUCOSE, FASTING 77 MG/DL (70-100); POTASSIUM SERUM 4.5 MEQ/L (3.5-5.1); SALICYLATE LEVEL < 1.7 MG/DL (5.0-30.0); SODIUM LEVEL 144 MEQ/L (136-145); TOTAL PROTEIN 7.3 GM/DL (6.4-8.2)
[2020-09-28 08:04] LABS: AMPHETAMINES LEVEL URINE NEGATIVE (NEGATIVE); BARBITURATES URINE NEGATIVE (NEGATIVE); BENZODIAZEPINES URINE POSITIVE (NEGATIVE); CANNABINOIDS URINE NEGATIVE (NEGATIVE); COCAINE METABOLITE URINE NEGATIVE (NEGATIVE); METHADONE URINE NEGATIVE (NEGATIVE); OPIATES URINE NEGATIVE (NEGATIVE); PHENCYCLIDINE URINE NEGATIVE (NEGATIVE)
--- NOTE | 2020-09-28 08:05 | ECGEPIP ---
[facility] - ED Test Date: 2020-09-28 Pat Name: BASSAM CORDERO Department: Room: - Gender: Female Die Cut Operator: reinaldo : 1985 Requested By: PEDRITO Luo Order Number: [id number] Reading MD: Marily Rosenberg Measurements Intervals [place] Rate: 86 P: 63 WV: 159 QRS: 68 QRSD: 117 T: 54 QT: 397 QTc: 477 Interpretive Statements SINUS RHYTHM WITH SINUS ARRHYTHMIA INCOMPLETE RIGHT BUNDLE BRANCH BLOCK No prior Electronically Signed on 09-28-2020 8:05:12 EST by Marily Rosenberg
[2020-09-28] MEDS ORDERED: OXYC-517 PO (08:34)
[2020-09-28 12:00] LABS: RSV AMPLIFICATION NEGATIVE (NEGATIVE)
[2020-09-28] MEDS ORDERED: ACETAMINOPHEN TAB 650MG DOSE (2X325MG) PO PRN (13:00)
--- NOTE | 2020-09-28 13:14 | HPEPDOC ---
[facility] Medical History & Physical Date of Admission Sep 28, 2020 Date of Service: Sep 28, 2020 History and Physical Chief complaint: Brought to the emergency room by EMS after she was found unresponsive History of present illness: Patient is a 35-year-old female with a PMHx of Anxiety / Depression (Hx of Suicidal attempts) presented to the emergency room brought in by for trauma EMS after she was found to be unresponsive. Patient had received Narcan on Route with minimal response. Poison control was contacted who recommended supportive care for 6-8 hours. Patient initially brought to the emergency room at approximately 6 AM, after 6 hours patient was minimally arousable. Hospital services called for further evaluation and treatment. Currently patient was asleep upon my arrival, however, did wake up on deep sternal rub. Patient is oriented to person, place and time, although appears to be very drowsy. She denies any nausea, vomiting, chest pain, shortness of breath, palpitations, abdominal pain, constipation, or diarrhea. A Denson catheter is present that has been placed upon arrival to in the ER. Patient is unable to recall what had happened overnight. She was asking me what had happened. Shes been informed that she was brought to the emergency room after she was noted to have consumed was suspected to be Benadryl, Ativan and alcohol. Past Medical History: Anxiety / Depression (Hx of Suicidal attempts) Past Surgical History: Breast augmentation Cholecystectomy Allergies: See below Medications: See below Family History: - No history of malignancies Social History: - Denies the use of tobacco or illicit drugs; patient reports that she doesnt drink regularly - Denies recent travel or sick contacts - Lives with children but they are staying at her fathers home at the moment Review of Systems: 10 point review of systems complete, all negative otherwise stated in HPI Physical exam: - Vitals: BP [101/58], HR [79], RR [14], Sat [99%RA], Temp [97.2F] - General: Lying in bed, No acute distress, AAOx3 - HEENT: NC, AT, Pupils dilated, responds to light - however slow - CVS: Mildly tachycardic, +S1S2 - Lungs: Fair air entry bilaterally, No appreciable wheezing / rales / rhonchi - Abdomen: Soft, Non-distended, Non-tender, + Denson catheter - Extremities: No lower extremity edema, No calf tenderness - Neuro: No focal motor or sensory deficit - Skin: No visible rashes Labs: See below Imaging: See below EKG: See below Assessment and Plan: Acute toxic encephalopathy - likely 2/2 medication overdose / suicidal attempt - EMS has reported the patient may have consumed Benadryl, Ativan and alcohol before she was found unresponsive - Currently patient is awake, alert and oriented to person, place and time, although very drowsy - There are no focal neurologic deficits - Electrolytes have been reviewed - EKG noted; will repeat - Will c/w telemetry monitoring - Case discussed with Poison control; plan to continue supportive care - Clear liquid diet for now; advance as tolerated Suicidal attempt - Currently patient denies any suicidal ideation - Has a history of suicidal attempts in the past - Patient is unable to recall details of this event - Will start suicidal precautions / one-to-one observation - Will consult psychiatry within 24 hours, once medically cleared Anxiety / Depression - Will hold Ativan DVT prophylaxis - Will start TEDs/Sequentials Vital Signs Vital Signs Date Time Temp Pulse Resp B/P (MAP) Pulse Ox O2 Delivery O2 Flow Rate FiO2 09/28/20 12:16 80 14 99 Room Air 09/28/20 12:10 101/58 (72) 09/28/20 06:21 97.2 Laboratory Data Labs 24H Laboratory Tests 2 09/28/20 05:50: Urine Opiates Screen NEGATIVE, Urine Methadone Screen NEGATIVE, Urine Barbiturates Screen NEGATIVE, Urine Phencyclidine Screen NEGATIVE, Urine Amphetamines Screen NEGATIVE, Urine Benzodiazepines Screen POSITIVEH, Urine Cocaine Metabolite Screen NEGATIVE, Urine Cannabinoids Screen NEGATIVE 09/28/20 05:53: Immature Granulocyte % (Auto) 0.5, Neutrophils (%) (Auto) 64.5, Lymphocytes (%) (Auto) 27.7, Monocytes (%) (Auto) 6.1H, Eosinophils (%) (Auto) 0.5, Basophils (%) (Auto) 0.7, Neutrophils # (Auto) 5.5, Lymphocytes # (Auto) 2.4, Monocytes # (Auto) 0.5, Eosinophils # (Auto) 0.0, Basophils # (Auto) 0.1, Nucleated Red Blood Cells % (auto) 0.0, Anion Gap 7L, Glomerular Filtration Rate > 60.0, Calcium Level 8.8, Total Bilirubin 0.3, Direct Bilirubin 0.1, Aspartate Amino Transf (AST/SGOT) 8, Alanine Aminotransferase (ALT/SGPT) 14, Alkaline Phospha tase 61, Total Creatine Kinase 74, Total Protein 7.3, Albumin 4.3, Albumin/Globulin Ratio 1.4, Thyroid Stimulating Hormone (TSH) 0.570, Human Chorionic Gonadotropin, Qual NEGATIVE, Salicylates Level < 1.7L, Acetaminophen Level < 2.0L, Ethyl Alcohol Level 0.245H 09/28/20 06:35: POC pH (Misc Panel) 7.353, POC Base Excess (Misc Panel) -2.0, POC Saturated Percent O2 (Misc) 98, POC pO2 (Misc Panel) 106.0H, POC pCO2 (Misc Panel) 42.5, POC HCO3 (Misc Panel) 23.6, POC Total CO2 (Misc Panel) 25.0 09/28/20 06:40: Bedside Glucose (Misc Panel) 71 09/28/20 07:50: Coronavirus (COVID-19)(PCR) NEGATIVE, Influenza Type A (RT-PCR) NEGATIVE, Influenza Type B (RT-PCR) NEGATIVE, Respiratory Syncytial Virus (PCR) NEGATIVE CBC/BMP Laboratory Tests 09/28/20 05:53 Home Medications Scheduled Levonorgestrel (Mirena) 1 Each Iud, 20 MCG IU ASDIRECTED Scheduled PRN Alprazolam (Alprazolam) 1 Mg Tab, 1 MG PO BID PRN for ANXIETY Oxycodone HCl (Oxycodone HCl) 5 Mg Tablet, 5 MG PO Q4H PRN for PAIN GIVEN AFTER FOOT SURGERY Allergies Coded Allergies: No Known Allergies (Unverified , 08/02/20) NICKI JUAREZ MD Sep 28, 2020 13:14
[2020-09-28] MEDS: THIAMINE 100 MG TAB PO SCH (15:10)
[2020-09-28] MEDS: FOLIC ACID 1 MG TAB PO SCH (15:10)
[2020-09-28] MEDS: MULTIVITAMINS/MINERALS THERAP 1 TAB PO SCH (15:10)
[2020-09-28] MEDS ORDERED: ONDANSETRON 4MG/2ML VIAL IV PRN (15:30)
--- NOTE | 2020-09-28 18:49 | MHCRPDOC ---
[facility] Consultation Consultation DATE OF CONSULTATION: 09/28/20 CONSULTATION REQUESTED BY: Dr. Fisher REASON FOR CONSULTATION: R/O Intentional overdose versus accidental overdose RELEVANT HISTORY: As per ED report: "Chief complaint: Brought to the emergency room by EMS after she was found unresponsive History of present illness: Patient is a 35-year-old female with a PMHx of Anxiety / Depression (Hx of Suicidal attempts) presented to the emergency room brought in by for trauma EMS after she was found to be unresponsive. Patient had received Narcan on Route with minimal response. Poison control was contacted who recommended supportive care for 6-8 hours. Patient initially brought to the emergency room at approximately 6 AM, after 6 hours patient was minimally arousable. Hospital services called for further evaluation and treatment. Currently patient was asleep upon my arrival, however, did wake up on deep s ternal rub. Patient is oriented to person, place and time, although appears to be very drowsy. She denies any nausea, vomiting, chest pain, shortness of breath, palpitations, abdominal pain, constipation, or diarrhea. A Denson catheter is present that has been placed upon arrival to in the ER. Patient is unable to recall what had happened overnight. She was asking me what had happened. Shes been informed that she was brought to the emergency room after she was noted to have consumed was suspected to be Benadryl, Ativan and alcohol." Interval History: The patient says she was " a little tipsy because I drank a total of 2 bottles of champagne with my ... a bottle each.... and I put some pills on my hand.... and I guess I didn't realize it was more pills...., but I didn't do this to kill myself, it was just that I was drunk.... I think it was 4 pills....." PAST PSYCHIATRIC HISTORY: Patient reports a h/o anxiety and depression, she receives therapy and goes to a Psychiatrist, she gives a confusing history about his whereabouts. She says at this time he is probably in [place]. She says she has met with him via [employer] during the pandemic and that he practices in [place] but he goes back to [place] and she is not sure that he is in town. She denies previous suicide attempts of previous hospitalizations PAST MEDICAL HISTORY: She has a liver tumor (benign), reports a recent ERCP. FAMILY HISTORY: Mother: Mother is alive and well, she lives in [place] Father: , he was schizophrenic, he became homeless and developed an ulcer on his leg, became septic Siblings: One of her brothers committed suicide 10 years ago (a brother), the other brother ( was schizophrenic) and one of them is alive and well Children: 4 children ( 10, 7, 5 and 3) PERSONAL AND SOCIAL HISTORY: The patient was born and raised in [place]. Resides in: [place] Marital Status: M Children: 4, alive and well Employment: Unemployed SUBSTANCE ABUSE HISTORY: Smoking: She denies ETOH: Yes, recently she got drunk, possibly drank 1 bottles of champagne 2 nights ago. Illicit Drugs: Denies LEGAL HISTORY: Denies. MENTAL STATUS EXAMINATION: Patient is a 35 year old female, who is alert, cooperative, dressed in hospital clothes, laying in bed Speech is normal in r/t/v. spontaneous and fluent Language skills are intact. Thought processes including: linear and coherent. Thought content: denies SI/Hi, denies thought delusions, admiths having anxious thoughts. Abstract reasoning, and computation: intact. Description of associations: not loose. Description of abnormal or psychotic thoughts: she denies thought delusions, denies TAV hallucinations, she is not responding to internal stimuli. Judgment: Poor. Insight: Poor. Orientation to x 3. Recent and remote memory: she can't remember exactly what happened the night she was brought in to the ED.. Attention span and concentration: good Language: normal. Fund of knowledge: average. Mood: anxious, sad ( tearful at times). Affect: congruent with mood DIAGNOSIS: 1. Generalized anxiety disorder 2. R/O Adjustment disorder with anxious mood 3. R/O Intentional overdose 4. R/O depression PLAN: 1. Transfer to [facility] after she spends a [facility]. She could benefit from Klonopin 1 mg PO BID PRN for anxiety instead of taking Xanax, since she overdosed on this medication. 2. She has a liver tumor, she says it's benign. She will need the Hospitalist to f/u on this. 3. Thank you Dr. Fisher for the consult Vital Signs Vital Signs Date Time Temp Pulse Resp B/P (MAP) Pulse Ox O2 Delivery O2 Flow Rate FiO2 09/28/20 15:21 97.3 100 17 100 Room Air 09/28/20 15:20 119/76 (90) Laboratory Data 24H Labs Laboratory Tests 2 09/28/20 05:50: Urine Opiates Screen NEGATIVE, Urine Methadone Screen NEGATIVE, Urine B arbiturates Screen NEGATIVE, Urine Phencyclidine Screen NEGATIVE, Urine Amphetamines Screen NEGATIVE, Urine Benzodiazepines Screen POSITIVEH, Urine Cocaine Metabolite Screen NEGATIVE, Urine Cannabinoids Screen NEGATIVE 09/28/20 05:53: Immature Granulocyte % (Auto) 0.5, Neutrophils (%) (Auto) 64.5, Lymphocytes (%) (Auto) 27.7, Monocytes (%) (Auto) 6.1H, Eosinophils (%) (Auto) 0.5, Basophils (%) (Auto) 0.7, Neutrophils # (Auto) 5.5, Lymphocytes # (Auto) 2.4, Monocytes # (Auto) 0.5, Eosinophils # (Auto) 0.0, Basophils # (Auto) 0.1, Nucleated Red Blood Cells % (auto) 0.0, Anion Gap 7L, Glomerular Filtration Rate > 60.0, Calcium Level 8.8, Total Bilirubin 0.3, Direct Bilirubin 0.1, Aspartate Amino Transf (AST/SGOT) 8, Alanine Aminotransferase (ALT/SGPT) 14, Alkaline Phosphatase 61, Total Creatine Kinase 74, Total Protein 7.3, Albumin 4.3, Albumin/Globulin Ratio 1.4, Thyroid Stimulating Hormone (TSH) 0.570, Human Chorionic Gonadotropin, Qual NEGATIVE, Salicylates Level < 1.7L, Acetaminophen Level < 2.0L, Ethyl Alcohol Level 0.245H 09/28/20 06:35: POC pH (Misc Panel) 7.353, POC Base Excess (Misc Panel) -2.0, POC Saturated Percent O2 (Misc) 98, POC pO2 (Misc Panel) 106.0H, POC pCO2 (Misc Panel) 42.5, POC HCO3 (Misc Panel) 23.6, POC Total CO2 (Misc Panel) 25.0 09/28/20 06:40: Bedside Glucose (Misc Panel) 71 09/28/20 07:50: Coronavirus (COVID-19)(PCR) NEGATIVE, Influenza Type A (RT-PCR) NEGATIVE, Influenza Type B (RT-PCR) NEGATIVE, Respiratory Syncytial Virus (PCR) NEGATIVE Home Medications Current Medications Current Medications Medications (Trade) Dose Ordered Sig/Adwoa Route PRN Reason Start Time Stop Time Status Last Admin Dose Admin Acetaminophen (Tylenol Tab) 650 mg Q4H PRN PO PAIN OR FEVER 09/28/20 13:00 Folic Acid (Folic Acid) 1 mg DAILY PO 09/28/20 09:00 09/28/20 15:10 Home Med (Med Rec Complete!) ASDIRECTED XX 09/28/20 08:45 09/28/20 08:39 DC Multivitamins (Theragram-M) 1 tab DAILY PO 09/28/20 09:00 09/28/20 15:10 Ondansetron HCl (ZOFRAN INJection) 4 mg Q6HP PRN IV NAUSEA OR VOMITING 09/28/20 15:30 Thiamine HCl (Thiamine HCl) 100 mg DAILY PO 09/28/20 09:00 09/28/20 15:10 Scheduled Levonorgestrel (Mirena) 1 Each Iud, 20 MCG IU ASDIRECTED, (Reported) Scheduled PRN Alprazolam (Alprazolam) 1 Mg Tab, 1 MG PO BID PRN for ANXIETY, (Reported) Oxycodone HCl (Oxycodone HCl) 5 Mg Tablet, 5 MG PO Q4H PRN for PAIN, (Reported) GIVEN AFTER FOOT SURGERY Allergies Coded Allergies: No Known Allergies (Unverified , 08/02/20) MOIRA AVELAR MD Sep 28, 2020 18:20
[2020-09-28 20:00] VITALS: BP 107/56
[2020-09-29] VITALS: BP 117/69
[2020-09-29 04:00] VITALS: BP 103/65
[2020-09-29 05:54] LABS: BASO # 0.1 10^3/uL (0.0-0.2); BASO % 0.5 % (0.0-1.0); EOS # 0.2 10^3/uL (0.0-0.5); EOS % 1.1 % (0.0-3.0); HEMOGLOBIN 11.5 g/dl (12.0-15.5); LYMPH # 1.9 10^3/uL (1.5-5.0); LYMPH % 14.1 % (24.0-44.0); MEAN CORPUSCULAR HEMOGLOBIN 30.6 pg (27.0-33.0); MEAN CORPUSCULAR HGB CONC 32.9 g/dl (32.0-36.5); MEAN CORPUSCULAR VOLUME 93.1 fl (80.0-96.0); MONO # 1.4 10^3/uL (0.0-0.8); MONO % 10.5 % (0.0-5.0); NEUTROPHILS # 9.9 10^3/uL (1.5-8.5); NEUTROPHILS % 73.5 % (36.0-66.0); PLATELET COUNT, AUTOMATED 238 10^3/uL (150-450); RED BLOOD COUNT 3.76 10^6/uL (4.00-5.40); WHITE BLOOD COUNT 13.5 10^3/uL (4.0-10.0)
[2020-09-29 06:27] LABS: BLOOD UREA NITROGEN 13 MG/DL (7-18); CALCIUM LEVEL 8.2 MG/DL (8.5-10.1); CARBON DIOXIDE LEVEL 28 MEQ/L (21-32); CHLORIDE LEVEL 106 MEQ/L (98-107); CREATININE FOR GFR 0.61 MG/DL (0.55-1.30); GLOMERULAR FILTRATION RATE > 60.0 (>60); GLUCOSE, FASTING 79 MG/DL (70-100); MAGNESIUM LEVEL 2.1 MG/DL (1.8-2.4); POTASSIUM SERUM 3.8 MEQ/L (3.5-5.1); SODIUM LEVEL 139 MEQ/L (136-145)
[2020-09-29] MEDS ORDERED: FOLI1TAB11 PO (07:01)
[2020-09-29] MEDS ORDERED: THIA100TA PO (07:01)
[2020-09-29] MEDS ORDERED: VITMTA PO (07:01)
[2020-09-29 08:00] VITALS: BP 102/57
[2020-09-29] MEDS: MULTIVITAMINS/MINERALS THERAP 1 TAB PO SCH (09:15)
[2020-09-29] MEDS: THIAMINE 100 MG TAB PO SCH (09:15)
[2020-09-29] MEDS: FOLIC ACID 1 MG TAB PO SCH (09:15)
--- NOTE | 2020-09-29 12:06 | DS.PDOC ---
Discharge Summary General Date of Admission Sep 28, 2020 at 12:54 Date of Discharge 09/29/20 Discharge Summary PROCEDURES PERFORMED DURING STAY: [None]. ADMITTING DIAGNOSES / DISCHARGE DIAGNOSES: s/p Acute toxic encephalopathy - likely 2/2 medication overdose / suspected suicidal attempt Leukocytosis - likely 2/2 reactive etiology Suspected suicidal attempt Anxiety / Depression DVT prophylaxis COMPLICATIONS/CHIEF COMPLAINT: Unresponsive Brought in by EMS Found with pill bottles as per EMS HISTORY OF PRESENT ILLNESS: Patient is a 35-year-old female with a PMHx of Anxiety / Depression (Reported hx of suicidal attempts) presented to the ER brought in by for EMS after she was found to be unresponsive. Patient had received Narcan on Route with minimal response. Poison control was contacted who recommended supportive care for 6-8 hours. Patient initially brought to the emergency room at approximately 6 AM, after 6 hours patient was minimally arousable. Hospital services called for further evaluation and treatment. Currently patient was asleep upon my arrival, however, did wake up on deep sternal rub. Patient is oriented to person, place and time, although appears to be very drowsy. She denies any nausea, vomiting, chest pain, shortness of breath, palpitations, abdominal pain, constipation, or diarrhea. A Denson catheter is present that has been placed upon arrival to in the ER. Patient is unable to recall what had happened overnight. She was asking me what had happened. Shes been informed that she was brought to the ER after she was noted to have consumed what was suspected to be Benadryl, Ativan and alcohol. Patient was seen and examined at the bedside this morning. Reports that she feels relatively fine. Denies any headache, nausea, vomiting, chest pain, shortness breath, palpitations, abdominal pain, constipation, or urinary discomfort. Her Ednson catheter has been discontinued. Patient reports that she did not have suicidal thoughts, however, is unable to r ecall any of the events in question. I've advised her that she has been seen and evaluated by psychiatry who have recommended that she continue with stay in the inpatient mental health unit for further evaluation. HOSPITAL COURSE: s/p Acute toxic encephalopathy - likely 2/2 medication overdose / suspected suicidal attempt - EMS has reported the patient may have consumed Benadryl, Ativan and alcohol before she was found unresponsive - This morning is awake, alert and oriented 3 / no focal deficits - Electrolytes have been reviewed - EKG noted; will repeat - c/w telemetry monitoring - Case was discussed with Poison control; ; advised to continue with supportive care until mentation returns to baseline - Diet fully advanced Leukocytosis - likely 2/2 reactive etiology - Patient is afebrile and hemodynamically stable - Review of systems is negative - Will hold off on antibiotic therapy Suspected suicidal attempt - Currently patient denies any suicidal ideation - Has a reported history of suicidal attempts in the past based on discussion with ER - Patient is unable to recall details of this event - c/w suicidal precautions / one-to-one observation - Psychiatry on consult; I discussed the case with Dr. Milner; recommended. The patient will benefit from a stay of inpatient mental health unit given her poor judgment and high risk of suicide given her history / family history of suicide - Will transition to [facility] today Anxiety / Depression - s/p Ativan DVT prophylaxis - Will start TEDs/Sequentials DISCHARGE MEDICATIONS: Please see below. ALLERGIES: Please see below. PHYSICAL EXAMINATION ON DISCHARGE: Vitals (See below) General: Lying in bed, appears to be comfortable, AAOx3 HEENT: NC, AT CVS: +S1S2 Lungs: Fair air entry b/l, -w/r/r Abdomen: Soft, ND, NT Extremities: no evidence of edema, - Calf tenderness LABORATORY DATA: Please see below. ACTIVITY: [As tolerated]. DISCHARGE PLAN: Follow-up with psychiatry upon transition to [facility] Remain compliant with treatment plan and medications Return to the ER if you experience any problems DISPOSITION: [facility] DISCHARGE CONDITION: [Stable]. TIME SPENT ON DISCHARGE: 35 minutes Vital Signs/I&Os Vital Signs Date Time Temp Pulse Resp B/P (MAP) Pulse Ox O2 Delivery O2 Flow Rate FiO2 09/29/20 08:00 98.0 85 16 102/57 (72) 99 Room Air I&O- Last 24 Hours up to 6 AM 09/29/20 05:59 Intake Total 1600 ml Output Total 1075 ml Balance 525 ml Laboratory Data Labs 24H Laboratory Tests 2 09/29/20 05:43: Immature Granulocyte % (Auto) 0.3, Neutrophils (%) (Auto) 73.5H, Lymphocytes (%) (Auto) 14.1L, Monocytes (%) (Auto) 10.5H, Eosinophils (%) (Auto) 1.1, Basophils (%) (Auto) 0.5, Neutrophils # (Auto) 9.9H, Lymphocytes # (Auto) 1.9, Monocytes # (Auto) 1.4H, Eosinophils # (Auto) 0.2, Basophils # (Auto) 0.1, Nucleated Red Blood Cells % (auto) 0.0, Anion Gap 5L, Glomerular Filtration Rate > 60.0, Calcium Level 8.2L, Magnesium Level 2.1 CBC/BMP Laboratory Tests 09/29/20 05:43 Discharge Medications Scheduled Folic Acid (Folic Acid) 1 Mg Tablet, 1 MG PO DAILY Multivitamins (Thera M Plus Tablet) 1 Each Tablet, 1 TAB PO DAILY Thiamine Hcl (Vitamin B-1) 100 Mg Tablet, 100 MG PO DAILY Allergies Coded Allergies: No Known Allergies (Unverified , 08/02/20) NICKI JUAREZ MD Sep 29, 2020 12:06
== END 2020-09-29 11:45 | DRG 917 ==
LOC: M ED 05:44 → M ED INP 12:54 → ENRESERV 13:57 → M PCU 15:40
PROVIDERS: ADMIT Internal Medicine; ATTEND Internal Medicine
DX: T42.4X2A Poisoning by benzodiazepines, intentional self-harm, initial encounter (principal); G92 Toxic encephalopathy; F41.9 Anxiety disorder, unspecified; F32.9 Major depressive disorder, single episode, unspecified; D72.829 Elevated white blood cell count, unspecified

== ENCOUNTER 2020-09-29 10:58 | Inpatient (IN) | payer OTHER ==
[~2020-09-29] VITALS: Ht 167.6 cm; Wt 66.1 kg
[~2020-09-29 10:58] MED LIST changes: +FOLI1TAB11 PO; +HYDR-3713; +OXYC-517 PO; +THIA100TA PO; +TRAM50TA2; +VITMTA PO
[2020-09-29] MEDS ORDERED: MAALOX 30 ML SUSP *UDC PO PRN (11:15)
[2020-09-29] MEDS ORDERED: LORazepam 2 MG TAB PO PRN (11:15)
[2020-09-29] MEDS ORDERED: MOM 30ML SUSPENSION UDC PO PRN (11:15)
[2020-09-29] MEDS ORDERED: ACETAMINOPHEN TAB 650MG DOSE (2X325MG) PO PRN (11:15)
[2020-09-29 11:54] VITALS: BP 147/89
[2020-09-29 12:29] VITALS: BP 147/89
[2020-09-29] MEDS: clonazePAM 1 MG TAB PO PRN (14:51)
[2020-09-29] MEDS ORDERED: clonazePAM 1 MG TAB PO ONE (17:30)
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
[2020-09-29 18:00] VITALS: BP 132/98
[2020-09-29] MEDS: THIAMINE 100 MG TAB PO SCH (21:37)
[2020-09-29] MEDS: traZODone 50 MG TAB PO PRN (21:37)
[2020-09-30 05:36] VITALS: BP 112/65
[2020-09-30] MEDS: THIAMINE 100 MG TAB PO SCH ×2 (08:33→21:30)
[2020-09-30] MEDS: clonazePAM 1 MG TAB PO PRN ×2 (08:33→15:32)
[2020-09-30] MEDS: FOLIC ACID 1 MG TAB PO SCH (08:33)
[2020-09-30] MEDS: MULTIVITAMINS/MINERALS THERAP 1 TAB PO SCH (09:08)
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
[2020-09-30] MEDS: BETAMETHASONE VAL 0.1% CR 15 GM TOP SCH ×2 (13:31→21:30)
--- NOTE | 2020-09-30 13:58 | IPN ---
PROGRESS NOTE DATE: 09/30/2020 SUBJECTIVE: Sara has a contact dermatitis on both arms, patches where the electrodes were attached for telemetry, her EKG. I have ordered betamethasone 0.1% cream to apply twice a day to these areas of contact dermatitis.
--- NOTE | 2020-09-30 17:27 | MHIPNPDOC ---
[facility] Progress Note Progress Note DATE OF SERVICE: 09/30/20 HISTORY: HISTORY OF THE PRESENT ILLNESS: Patient is a 35 -year-old , female, who, was admitted to the medical floor on 09/28 for an overdose, as it states on previous reports: "RELEVANT HISTORY: As per ED report: "Chief complaint: Brought to the emergency room by EMS after she was found unresponsive History of present illness: Patient is a 35-year-old female with a PMHx of Anxiety / Depression (Hx of Suicidal attempts) presented to the emergency room brought in by for trauma EMS after she was found to be unresponsive. Patient had received Narcan on Route with minimal response. Poison control was contacted who recommended supportive care for 6-8 hours. Patient initially brought to the emergency room at approximately 6 AM, after 6 hours patient was minimally arousable. Hospital services called for further evaluation and treatment. Currently patient was asleep upon my arrival, however, did wake up on deep sternal rub. Patient is oriented to person, place and time, although appears to be very drowsy. She denies any nausea, vomiting, chest pain, shortness of breath, palpitations, abdominal pain, constipation, or diarrhea. A Denson catheter is present that has been placed upon arrival to in the ER. Patient is unable to recall what had happened overnight. She was asking me what had happened. Shes been informed that she was brought to the emergency room after she was noted to have consumed was suspected to be Benadryl, Ativan and alcohol." Interval History: The patient says she was " a little tipsy because I drank a total of 2 bottles of champagne with my ... a bottle each.... and I put some pills on my hand.... and I guess I didn't realize it was more pills...., but I didn't do this to kill myself, it was just that I was drunk.... I think it was 4 pills....." VITAL SIGNS: See below. NEW TEST RESULTS: See below CURRENT MEDICATIONS: See below. MENTAL STATUS EXAMINATION: General Appearance: well groomed, appears stated age, hospital scrubs/clothing Build: thin Demeanor: preoccupied, anxious Eye Contact: average Activity: anxious Behavior: cooperative Speech: clear, spontaneous, reg/rate,rhythm,volume Mood: anxious, other (sad because she is away from her and children, but not depressed) Affect: constricted, congruent, anxious, other (tearful at times) Thought Process: logical/linear Thought Content (Delusions): none reported Thought Content (Other): none reported Thought Content (Aggressive): none reported Perception (Hallucinations): none reported Perception (Other): none reported Cognition (Impairment of): none reported Cognition(Intelligence Est.): average Oriented: Awake, Alert, Oriented times three Insight: poor Judgment: Poor Psychosis: Denies Diagnoses 1. Generalized Anxiety disorder 2. Panic disorder 3. Recent overdose 4. Liver tumor ASSESSMENT: She says she feels depressed for being here, she shouldn't have angel kumar, she should have known better. At that moment she looked sad because she feels guilty and becuase she misses her children and her . W MANAGEMENT PLAN: Will continue current treatment plan, possibly could be discharged tomorrow if she continues to be stable. TIME SPENT: 20 minutes. Vital Signs Vital Signs Date Time Temp Pulse Resp B/P (MAP) Pulse Ox O2 Delivery O2 Flow Rate FiO2 09/30/20 05:36 99.4 82 16 112/65 (81) 99 Room Air Current Medications Current Medications Medications (Trade) Dose Ordered Sig/Adwoa Route PRN Reason Start Time Stop Time Status Last Admin Dose Admin Acetaminophen (Tylenol Tab) 650 mg Q6HP PRN PO HEADACHE or DISCOMFORT 09/29/20 11:15 Al Hydrox/Mg Hydrox/Simethicone (Mylanta) 30 ml Q4HP PRN PO HEARTBURN/INDIGESTION 09/29/20 11:15 Betamethasone Valerate (Valisone) apply to rash BID TOP 09/30/20 09:00 09/30/20 13:31 Clonazepam (KlonoPIN) 1 mg TIDP PRN PO DIRECTED 09/29/20 11:15 09/30/20 15:32 Folic Acid (Folic Acid) 1 mg DAILY PO 09/30/20 09:00 09/30/20 08:33 Lorazepam (Ativan) 2 mg ASDIRECTED PRN PO SEE PROTOCOL 09/29/20 11:15 Magnesium Hydroxide (Milk Of Magnesia) 30 ml DAILYPRN PRN PO CONSTIPATION 09/29/20 11:15 Multivitamins (Theragram-M) 1 tab DAILY PO 09/30/20 09:00 09/30/20 09:08 Thiamine HCl (Thiamine HCl) 100 mg BID PO 09/29/20 21:00 10/01/20 21:01 09/30/20 08:33 Trazodone HCl (Desyrel) 50 mg QHSP PRN PO INSOMNIA 09/29/20 11:15 09/29/20 21:37 Allergies Coded Allergies: No Known Allergies (Unverified , 08/02/20) MOIRA AVELAR MD Sep 30, 2020 16:38
[2020-09-30 17:38] VITALS: BP 121/69
[2020-09-30] MEDS: traZODone 50 MG TAB PO PRN (21:33)
[2020-10-01] MEDS: clonazePAM 1 MG TAB PO PRN ×2 (00:59→09:28)
[2020-10-01 06:14] VITALS: BP 99/54
[2020-10-01] MEDS: FOLIC ACID 1 MG TAB PO SCH (09:28)
[2020-10-01] MEDS: THIAMINE 100 MG TAB PO SCH (09:28)
[2020-10-01] MEDS: MULTIVITAMINS/MINERALS THERAP 1 TAB PO SCH (09:29)
[2020-10-01] MEDS: BETAMETHASONE VAL 0.1% CR 15 GM TOP SCH (09:30)
--- NOTE | 2020-10-01 10:48 | MHDSPDOC ---
[facility] Discharge Summary Discharge Summary DATE OF ADMISSION: Sep 29, 2020 at 11:49 DATE OF DISCHARGE: Oct 01, 2020 at 1051 DISCHARGE DIAGNOSES: 1. Adjustment disorder with anxious mood REASON FOR ADMISSION: Patient is a 35 -year-old , female, who, was admitted to the medical floor on 09/28 for an unintentional overdose, as it states on previous reports: As per ED report: "Chief complaint: Brought to the emergency room by EMS after she was found unresponsive. She states she was celebrating the new year with her and 4 children under 10 years old as well as her marriage anniversary and that she had some champagne with her and stayed up past midnight. She stated before bed she took her prescribed Xanax but may have taken more than she should have because she was drinking. She states that "it couldn't have been many because I'm due for a refill." She states that she has never had a history of depression and that she is "only sad because I am here." she reports that she was told that she was admitted because her brother had suicided over ten years ago and that she was upset because she believes that shouldn't affect her stay here as she is not depressed or suicidal. She reports no past suicidal ideation, gestures, attempts or planning. CONSULTANTS INVOLVED: see medical H&P by hospitalist TREATMENT AND PROGRESS ON THE UNIT : Per staff, client has been mostly in room throughout her stay. During the interview today, she maintains throughout her stay that the overdose was unintentional and that she "overindulged and didn't make the right decision" as she stated she drank alcohol and possibly took between 2-4 Xanax pills. States that she had very little in the bottle left so that there wasn't many in the bottle. But she vehemently denies that she had been planning any attempts of self-harm. Patient was admitted to the [facility] on a 9.39 legal status he was afforded the following treatment modalities: 1) Individual Therapy 2) Group Therapy 3) Medication Management 4) Milieu Therapy 5) Safe Environment HOSPITAL COURSE: Patient arrived via EMS to the emergency room after she was found unresponsive, she was monitored on [address] than transferred to [facility] on 08/28/21. Due to overdose, Xanax was discontinued and Klonopin was ordered. Patient was mildly withdrawn, staying close to her room but was engaged with staff, visible on the unit minimally. Did not attend groups stating, "I don't want to go to groups." Patient was forthcoming with her recent accidental overdose and reports remorse in her poor judgment. DISCHARGE ASSESSMENT: Sara was friendly and cooperative throughout the interview. she was appropriate, forthcoming with information, easy to engage in 1:1, maintained good eye contact. She denied feeling suicidal or depressed, denies any stressors at home, but does state that her family is moving to [place] in a few weeks as her is in the . She states she has no history of being depressed, just has a history of anxiety. She is remorseful, reports that overdose was unintentional and that she "overindulged and didn't make the right decision." She denies suicidal thoughts. Spoke with Jameson Molina, patient's who also states that overdose was accidental. He states patient has not been depressed and has no history of suicide attempts or gestures. He states that she may return home and feels comfortable with her discharge, states that he will be home with her until they move to [place] in a few weeks. He denies any safety concerns for her at this time. Recommended patient and her to move pill bottles to a safe location. MENTAL STATUS EXAMINATION ON DISCHARGE: Patient is a 35 year old , domiciled, female, who presents alert and oriented x3, is friendly, pleasant, easy to engage throughout the interview process. She is neat, clean, dressed in hospital clothing, calm during the interview Language skills are appropriate. Thought processes including: linear, goal oriented Thought content: denies si/ah/vh and cfs, does not appear to be internally preoccupied Abstract reasoning, and computation: appropriate. Description of associations: None observed, denies Description of abnormal or psychotic thoughts: denies, does not appear to be internally preoccupied Judgment: fair. Insight: good, remorseful Orientation to A&O x3. Recent and remote memory: intact Attention span and concentration:good . Language: appropriate Fund of knowledge: appropriate, Mood: Euthymic Affect: congruent, appropriate. MEDICATIONS ON DISCHARGE: See Medication Reconciliation. Xanax is discontinued . PLAN/FOLLOWUP ARRANGEMENTS: Patient will follow up with her private psychiatrist. The amount of time spent in the coordination of care for this patient was approximately 50 minutes. Vital Signs/I&Os Vital Signs Date Time Temp Pulse Resp B/P (MAP) Pulse Ox O2 Delivery O2 Flow Rate FiO2 10/01/20 06:14 98.2 80 16 99/54 (69) 96 Room Air Medications Scheduled Folic Acid (Folic Acid) 1 Mg Tablet, 1 MG PO DAILY for 30 Days, #30 Multivitamins (Thera M Plus Tablet) 1 Each Tablet, 1 TAB PO DAILY for 30 Days, #30 Thiamine Hcl (Vitamin B-1) 100 Mg Tablet, 100 MG PO DAILY for 30 Days, #30 Allergies Coded Allergies: No Known Allergies (Unverified , 08/02/20) DANGELO LOOMIS NP Oct 01, 2020 10:48
[2020-10-01] MEDS ORDERED: CLON1TAB8 PO (11:22)
== END 2020-10-01 13:00 | disposition home or self-care (01) | DRG 882 ==
LOC: M PSY 11:49
PROVIDERS: ADMIT Psychiatry & Neurology Psychiatry; ATTEND Psychiatry & Neurology Psychiatry
DX: F43.22 Adjustment disorder with anxiety (principal)